=== PATIENT | male | born 1990 ===

== ENCOUNTER 2023-10-08 07:37 | Outpatient (REF) | payer OTHER, SELFPAY ==
--- NOTE | ~2023-10-08 | XR_ITS ---
EXAMINATION: XR SHOULDER, RIGHT CLINICAL INFORMATION: Right shoulder pain. COMPARISON: None available. TECHNIQUE: AP and scapular Y views of the right shoulder. FINDINGS: The bones and soft tissues are normal. No fracture. Glenohumeral and acromioclavicular alignment is anatomic with normal joint space. No abnormal soft tissue calcifications. XR/XR shoulder RT min 2V IMPRESSION: Unremarkable examination.
== END 2023-10-08 07:38 | disposition home or self-care (01) ==
LOC: HO.HOSX 07:37
PROVIDERS: Visit Provider Orthopaedic Surgery
DX: M25.511 Pain in right shoulder (principal)
CPT/HCPCS: 73030; 99202

== ENCOUNTER 2023-10-08 08:13 | Outpatient (AMB) | payer OTHER, SELFPAY ==
--- NOTE | 2023-10-08 08:24 | A.OFFVIS_ITS ---
Vital Signs 10/08/23 08:31 Height 6 ft Weight 250 lb BMI 33.9 Handedness Right Intake Visit Reasons: [employer]-RIght shoulder injury-DOI 08/10/23 WC Intake Note: Bolivar is a 33 year old male who presents today as a new patient for a evaluation of his right shoulder injury, DOI 08/10/23. Patient reports when he was working he was trying to empty the trash, he felt a pulling sensation down his bicep. The patient states that he had an MRI of his right shoulder already. The MRI reports and images are not available today. The patient continues light duty at work. He reports mild weakness when lifting his right hand above shoulder height. He takes ibuprofen which gives him mild relief. 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 Physical Exam Vital Signs: BMI result Body Mass Index 33.9 Const Other: Well-nourished well-developed very friendly male awake alert and oriented x3 in no acute distress Extrem Other: Bilateral upper extremity examination shows good capillary refill, no skin lesions noted, normal sensation light touch Right shoulder examination shows slightly decreased range of motion when compared to his left shoulder, 4+ out of 5 strength with supraspinatus testing, positive impingement signs, no instability Results Reviewed Results Reviewed: X-rays of the patient's right shoulder show a type 2 acromion, no acute bony abnormalities Assessment & Plan Assessment & Plan (1) Right shoulder pain: Code(s): M25.511 - Pain in right shoulder Category: Medical Plan Mr. Marbella Lopez presents with right shoulder pain most likely due to impingement syndrome and rotator cuff tendinosis. At this time the patient's MRI reports and MRI images are not available. The patient states that he will picker tender his MRI report and images and make a follow-up appointment to discuss the findings and treatment options. He will continue with light duty at work for now. I spent 20 minutes in reviewing the patient's records and imaging studies, seeing the patient and documenting in the medical record. Orders: Orders XR shoulder RT min 2V 10/08/23 M25.511 - Pain in right shoulder Coding Level of Care Code New Pt Level 3 (46793) Diagnoses Right shoulder pain M25.511
[2023-10-08 08:31] VITALS: BMI 33.9
== END 2023-10-08 08:37 | disposition home or self-care (01) ==
PROVIDERS: Visit Provider Orthopaedic Surgery
DX: M25.511 Pain in right shoulder (principal)
CPT/HCPCS: 99203

== ENCOUNTER 2023-10-25 10:11 | Outpatient (AMB) | payer OTHER, SELFPAY ==
--- NOTE | 2023-10-25 10:12 | MHC.OFFVIS ---
Intake Visit Reasons: Right elbow pain Intake Note: Bolivar is a 33 year old male who presents with complaints of pain along the anterior aspect of his right elbow. The patient did suffer an injury while working on 08/10/2023. He has been on light duty since that time. He injured his right elbow while emptying a trash can. At the patient's last visits it seem like he was complaining more of right shoulder pain. The patient denies any shoulder pain today. He has been taking ibuprofen which gives him mild relief of his elbow pain. The patient states that his elbow pain increases when he lifts objects with a flexed elbow. 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 Physical Exam Const Other: Well-nourished well-developed very friendly male awake alert and oriented x3 in no acute distress Extrem Other: Bilateral upper extremity examination shows good capillary refill, no skin lesions noted, normal sensation light touch Right elbow examination shows full active range of motion when compared to his left elbow, tenderness along his distal biceps insertion, no overlying skin lesions, no palpable defects Results Reviewed Results Reviewed: MRI of the patient's right elbow taken at [place] shows a high-grade partial-thickness distal biceps tendon tear Assessment & Plan Assessment & Plan (1) Right elbow pain: Code(s): M25.521 - Pain in right elbow Category: Medical Plan Mr. Marbella Lopez presents with right elbow pain due to a high-grade partial-thickness distal biceps tendon tear. At this point the patient should continue with light duty at work. He should also avoid any activities that cause discomfort. I will have him evaluated by my partner, Dr. Pugh, to help determine whether or not surgical repair is indicated at this time. I spent 21 minutes in reviewing the patient's records and imaging studies, seeing the patient and documenting in the medical record. Coding Level of Care Code Est Pt Level 3 (19217) Diagnoses Right elbow pain M25.521
== END 2023-10-25 10:39 | disposition home or self-care (01) ==
PROVIDERS: Visit Provider Orthopaedic Surgery
DX: M25.521 Pain in right elbow (principal); S46.211A Strain of muscle, fascia and tendon of other parts of biceps, right arm, initial encounter
CPT/HCPCS: 99213

== ENCOUNTER → 2023-10-25 10:11 | Outpatient (BNVA) | payer OTHER, SELFPAY | PROVIDERS: Visit Provider Orthopaedic Surgery | DX: S46.211A Strain of muscle, fascia and tendon of other parts of biceps, right arm, initial encounter (principal) | CPT/HCPCS: 99212 ==

== ENCOUNTER 2023-11-16 10:28 | Outpatient (AMB) | payer OTHER, SELFPAY ==
--- NOTE | 2023-11-16 10:29 | A.OFFVIS_ITS ---
Vital Signs 11/16/23 10:31 Height 6 ft Weight 250 lb BMI 33.9 Intake Visit Reasons: OV-Right bicep tear-discuss surgery Intake Note: Bolivar is a 33 year old right hand dominant male who presents today as he was referred by Dr. Rollins to discuss surgical intervention. The patient did suffer an injury while working on 08/10/2023. He has been on light duty since that time. He injured his right elbow while emptying a trash can. States having improvement in his pain since injury. Allergies No Known Allergies Allergy (Verified 10/25/23 10:14) HPI HPI OV-Right bicep tear-discuss surgery: Details: Bolivar is a 33 year old right hand dominant male who presents today as he was referred by Dr. Rollins to discuss surgical intervention. The patient did suffer an injury while working on 08/10/2023. He has been on light duty since that time. He injured his right elbow while emptying a trash can. States having improvement in his pain since injury. MRI showed a high-grade partial thickness rupture of the distal biceps tendon. 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 Physical Exam Vital Signs: BMI result Body Mass Index 33.9 Extrem Other: Negative hook test Mild weakness with resisted supination right hand No pain Full range of motion Results Reviewed Results Reviewed: MRI shows a high-grade partial-thickness tear of the right distal biceps Assessment & Plan Assessment & Plan (1) Tear of distal tendon of biceps: Code(s): S46.219A - Strain of muscle, fascia and tendon of other parts of biceps, unspecified arm, initial encounter Category: Medical Plan: This is a 33-year-old right-hand dominant male who is 3 months status post partial tear of his right distal biceps tendon. He has no pain and full range of motion. I reviewed options with him. I discussed surgery and the benefits and alternatives as well as nonsurgical options. Given the timeframe and the lack of symptoms I recommend continue activity as tolerated. If he has worsening symptoms or an incident when she feels it ruptures fully he can return to see me and likewise if he has pain that starts but there is no further injury he should return to see me. In the absence of these 2 scenarios he should continue activity as tolerated Coding Level of Care Code Est Pt Level 4 (79842) Diagnoses Tear of distal tendon of biceps S46.219A
[2023-11-16 10:31] VITALS: BMI 33.9
== END 2023-11-16 10:44 | disposition home or self-care (01) ==
PROVIDERS: Visit Provider Orthopaedic Surgery
DX: S46.211A Strain of muscle, fascia and tendon of other parts of biceps, right arm, initial encounter (principal)
CPT/HCPCS: 99213

== ENCOUNTER → 2023-11-16 10:28 | Outpatient (BNVA) | payer OTHER, SELFPAY | PROVIDERS: Visit Provider Orthopaedic Surgery | DX: S46.211A Strain of muscle, fascia and tendon of other parts of biceps, right arm, initial encounter (principal) | CPT/HCPCS: 99212 ==